=== PATIENT | female | born 1950 | race African-American/Black ===

== ENCOUNTER 2017-06-30 10:04 | Emergency (ER) | payer MEDICARE, MEDICAID ==
[~2017-06-30] VITALS: Ht 152.4 cm; Wt 40.0 kg
[~2017-06-30 10:04] MED LIST: ACETAMINOPHEN
[2017-06-30 10:16] VITALS: BP 156/91
[2017-06-30] MEDS ORDERED: ACETAMINOPHEN 325MG TABLET PO ONE (12:15)
[2017-06-30 13:32] LABS: CLARITY URINE CLOUDY (CLEAR); COLOR URINE DARK YELLOW (YELLOW); GLUCOSE URINE NEGATIVE (NEGATIVE); KETONES URINE NEGATIVE (NEGATIVE); LEUKOCYTE ESTERASE URINE 2+ (NEGATIVE); NITRITE URINE POSITIVE (NEGATIVE); OCCULT BLOOD URINE 3+ (NEGATIVE); PROTEIN URINE 1+ (NEGATIVE)
== END 2017-06-30 14:43 | disposition home or self-care (01) ==
LOC: ER 11:15
DX: S09.90XA Unspecified injury of head, initial encounter (principal); M25.511 Pain in right shoulder; I10 Essential (primary) hypertension; R31.9 Hematuria, unspecified; M54.9 Dorsalgia, unspecified; M54.2 Cervicalgia; W18.39XA Other fall on same level, initial encounter; Y93.89 Activity, other specified; Y92.89 Other specified places as the place of occurrence of the external cause; Y99.8 Other external cause status
CPT/HCPCS: 73030; 81001; 99285

== ENCOUNTER 2019-01-03 14:37 | Emergency (ER) | payer MEDICARE, MEDICAID ==
[~2019-01-03] VITALS: Ht 157.5 cm; Wt 55.0 kg
[2019-01-03] MEDS ORDERED: ACETAMINOPHEN 325MG TABLET PO NR (16:45)
[2019-01-03 17:49] VITALS: BP 115/75
== END 2019-01-03 17:56 | disposition home or self-care (01) ==
LOC: ER 14:37
DX: S09.8XXA Other specified injuries of head, initial encounter (principal); I10 Essential (primary) hypertension; R07.81 Pleurodynia; W18.39XA Other fall on same level, initial encounter; Y93.89 Activity, other specified; Y92.89 Other specified places as the place of occurrence of the external cause; Y99.8 Other external cause status
CPT/HCPCS: 99283

== ENCOUNTER 2021-07-08 02:17 | Inpatient (IN) | payer MEDICARE, MEDICAID ==
[~2021-07-08] VITALS: Ht 165.1 cm; Wt 48.6 kg
[2021-07-08] MEDS ORDERED: FAMOTIDINE 20MG/2ML VIAL IV STA (03:11)
[2021-07-08] MEDS ORDERED: SODIUM CHLORIDE 0.9% 1,000 ML IV ONE (03:15)
[2021-07-08 03:52] LABS: CLARITY URINE CLEAR (CLEAR); COLOR URINE YELLOW (YELLOW); KETONES URINE NEGATIVE (NEGATIVE); LEUKOCYTE ESTERASE URINE 1+ (NEGATIVE); NITRITE URINE NEGATIVE (NEGATIVE); OCCULT BLOOD URINE 3+ (NEGATIVE); PROTEIN URINE 1+ (NEGATIVE); SPECIFIC GRAVITY URINE 1.014 (1.005-1.030); UROBILINOGEN URINE 0.2 E.U./dL (0.2-1.0)
[2021-07-08 04:19] LABS: CHLORIDE 112 mEq/L (98-107)
[2021-07-08 04:32] LABS: HEMATOCRIT. 34.2 % (36.0-48.0); HEMOGLOBIN. 11.1 g/dL (12.0-16.0); MEAN CORPUSCULAR HEMOGLOBIN 33.4 pg (28.0-32.0); MEAN CORPUSCULAR VOLUME 102.7 fL (81.0-99.0); MEAN PLATELET VOLUME 8.6 fl (7.4-10.4); PLATELET 178 x1000/uL (130-400); RED BLOOD CELL COUNT 3.33 mill/uL (4.2-5.4); RED CELL DISTRIBUTION WIDTH 13.3 % (11.6-14.6)
[2021-07-08] MEDS ORDERED: PIPERACILLIN/TAZ 3.375G PREMIX 50 ML IV ONE (05:30)
[2021-07-08] MEDS ORDERED: ACETAMINOPHEN 325MG TABLET PO ONE (06:15)
[2021-07-08] MEDS ORDERED: IPRATROPIUM/ALBUTEROL 0.5-3(2.5)MG/3ML NEB NEB PRN (07:30)
[2021-07-08] MEDS ORDERED: GUAIFENESIN 200MG/10ML SUGAR FREE UDC PO PRN (07:30)
[2021-07-08] MEDS ORDERED: DOCUSATE SODIUM 100MG CAPSULE PO PRN (07:30)
[2021-07-08] MEDS ORDERED: NITROGLYCERIN 0.4MG TABLET SL SL PRN (07:30)
[2021-07-08] MEDS ORDERED: MAGNESIUM/ALUMINUM HYDROXIDE/SIMETHICONE 30ML UDC PO PRN (07:30)
[2021-07-08] MEDS ORDERED: CEFTRIAXONE 1 G PREMIX 50 ML IV NR (07:30)
[2021-07-08] MEDS ORDERED: ACETAMINOPHEN 325MG TABLET PO PRN ×2 (07:30)
[2021-07-08] MEDS ORDERED: CLONIDINE 0.1MG TABLET PO PRN (07:30)
[2021-07-08] MEDS ORDERED: ONDANSETRON HCL 4MG/2ML INJ IV PRN (07:30)
[2021-07-08] MEDS ORDERED: NALOXONE HCL 0.4MG/ML VIAL IV PRN (07:45)
[2021-07-08 08:01] LABS: PLATELET ESTIMATE NORMAL
[2021-07-08 08:22] LABS: ETHANOL BLOOD < 10 mg/dL
[2021-07-08 08:23] LABS: TOTAL IRON BINDING CAPACITY 343 ug/dL (250-450)
[2021-07-08 08:49] LABS: VITAMIN B12 SERUM 616 pg/mL (211-911)
[2021-07-08 08:51] LABS: FOLIC ACID (FOLATE) SERUM > 20.00 ng/mL (>5.38)
[2021-07-08] MEDS ORDERED: LEVOFLOXACIN 500MG PREMIX 100 ML IV SCH (09:00)
[2021-07-08 10:00] VITALS: BP 166/100
[2021-07-08] MEDS ORDERED: POTA10CA42 MT (10:00)
[2021-07-08] MEDS ORDERED: LOSA50TA41 PO (10:00)
[2021-07-08] MEDS ORDERED: SIMV10TA97 MT (10:00)
[2021-07-08] MEDS: METOPROLOL TARTRATE 25MG TABLET PO SCH ×2 (11:10→20:21)
[2021-07-08] MEDS: TRAMADOL 50MG TABLET PO PRN (11:10)
[2021-07-08] MEDS: PANTOPRAZOLE SODIUM 40 MG/VIAL IV SCH (11:11)
[2021-07-08 12:00] VITALS: BP 150/50
[2021-07-08 14:00] VITALS: BP 148/52
[2021-07-08] MEDS ORDERED: LEVOFLOXACIN 500MG PREMIX 100 ML IV NR (14:00)
[2021-07-08] MEDS: KETOROLAC 15MG/ML VIAL IV PRN (15:14)
[2021-07-08 16:00] VITALS: BP 112/76
[2021-07-08 16:32] LABS: CREATINE KINASE MB FRACTION 5.6 ng/mL (0.5-3.6)
[2021-07-08 18:00] VITALS: BP 124/72
[2021-07-08 20:00] VITALS: BP 118/70
[2021-07-08] MEDS: ZOLPIDEM TARTRATE 5MG TABLET PO PRN (20:39)
[2021-07-09] VITALS: BP 120/66
[2021-07-09 01:19] LABS: CREATINE KINASE MB FRACTION 8.8 ng/mL (0.5-3.6)
[2021-07-09 04:00] VITALS: BP 101/66
[2021-07-09 07:16] LABS: CHLORIDE 104 mEq/L (98-107)
[2021-07-09 07:28] LABS: BASOPHILS % 0.3 % (0.0-2.0); EOSINOPHILS % 0.9 % (0.0-5.0); HEMATOCRIT. 36.5 % (36.0-48.0); HEMOGLOBIN. 12.1 g/dL (12.0-16.0); LYMPHOCYTES % 22.5 % (20.0-50.0); MEAN CORPUSCULAR VOLUME 102.9 fL (81.0-99.0); MEAN PLATELET VOLUME 9.3 fl (7.4-10.4); MONOCYTES % 6.5 % (2.0-8.0); NEUTROPHILS % 69.8 % (40.0-76.0); PLATELET 174 x1000/uL (130-400); RED BLOOD CELL COUNT 3.55 mill/uL (4.2-5.4); RED CELL DISTRIBUTION WIDTH 13.3 % (11.6-14.6)
[2021-07-09 07:39] LABS: PHOSPHORUS 1.7 mg/dL (2.5-4.9)
[2021-07-09 08:00] VITALS: BP 156/84
[2021-07-09] MEDS ORDERED: CEFTRIAXONE 1,000 MG in DEXTROSE 5% WATER 50 ML IV SCH (08:00)
[2021-07-09] MEDS: CEFTRIAXONE 1,000 MG in DEXTROSE 5% WATER 50 ML IV SCH (08:18)
[2021-07-09] MEDS: KETOROLAC 15MG/ML VIAL IV PRN ×2 (08:19→17:34)
[2021-07-09] MEDS: METOPROLOL TARTRATE 25MG TABLET PO SCH (08:19)
[2021-07-09] MEDS: PANTOPRAZOLE SODIUM 40 MG/VIAL IV SCH (08:23)
[2021-07-09] MEDS ORDERED: POTASSIUM CHLORIDE INJ 40 MEQ in DEXT 5% WATER 250 ML IV ONE (08:45)
[2021-07-09] MEDS ORDERED: POTASSIUM CHLORIDE 20MEQ TABLET SR PO NR (09:00)
[2021-07-09] MEDS: ASPIRIN 325MG EC TABLET PO SCH (10:00)
[2021-07-09 10:06] LABS: CREATINE KINASE MB FRACTION 6.7 ng/mL (0.5-3.6)
[2021-07-09] MEDS ORDERED: MAGNESIUM 1 G PREMIX 100 ML IV SCH (11:00)
[2021-07-09] MEDS ORDERED: POTASSIUM PHOS,M-BASIC-D-BASIC 30 MMOL in DEXT 5% WATER 500 ML IV SCH (11:00)
[2021-07-09] MEDS ORDERED: KCL 20MEQ/100ML PREMIX 100 ML IV SCH (11:00)
[2021-07-09 12:14] LABS: *AMPHETAMINES SCREEN URINE NEGATIVE (NEGATIVE); *BARBITURATES SCREEN URINE NEGATIVE (NEGATIVE); *BENZODIAZEPINES SCREEN URINE NEGATIVE (NEGATIVE); *COCAINE SCREEN URINE NEGATIVE (NEGATIVE)
[2021-07-09 12:15] LABS: CANNABINOID URINE SCREEN NEGATIVE (NEGATIVE); METHADONE URINE SCREEN NEGATIVE (NEGATIVE); OPIATES URINE SCREEN PRESUMTIVE POSITIVE (NEGATIVE); PHENCYCLIDINE URINE SCREEN NEGATIVE (NEGATIVE)
[2021-07-09] MEDS: TRAMADOL 50MG TABLET PO PRN (14:16)
[2021-07-09] MEDS: LEVOFLOXACIN 250MG PREMIX 50 ML IV SCH (14:17)
[2021-07-09 20:00] VITALS: BP 137/81
[2021-07-09] MEDS: ZOLPIDEM TARTRATE 5MG TABLET PO PRN (20:38)
[2021-07-09] MEDS: FAMOTIDINE 20MG/2ML VIAL IV SCH (20:39)
[2021-07-09] MEDS: KCL 20MEQ/100ML PREMIX 100 ML IV SCH (21:08)
[2021-07-10] VITALS: BP 124/68
[2021-07-10] MEDS: KCL 20MEQ/100ML PREMIX 100 ML IV SCH (01:00)
[2021-07-10 04:00] VITALS: BP 141/73
[2021-07-10] MEDS: KETOROLAC 15MG/ML VIAL IV PRN ×2 (05:40→15:06)
[2021-07-10 06:00] LABS: CHLORIDE 109 mEq/L (98-107)
[2021-07-10 06:29] LABS: BASOPHILS % 0.3 % (0.0-2.0); EOSINOPHILS % 2.1 % (0.0-5.0); HEMOGLOBIN. 11.4 g/dL (12.0-16.0); LYMPHOCYTES % 23.2 % (20.0-50.0); MEAN CORPUSCULAR HEMOGLOBIN 33.2 pg (28.0-32.0); MEAN CORPUSCULAR VOLUME 101.9 fL (81.0-99.0); MEAN PLATELET VOLUME 9.7 fl (7.4-10.4); MONOCYTES % 7.4 % (2.0-8.0); PLATELET 160 x1000/uL (130-400); RED BLOOD CELL COUNT 3.44 mill/uL (4.2-5.4); RED CELL DISTRIBUTION WIDTH 13.3 % (11.6-14.6)
[2021-07-10 08:00] VITALS: BP 146/80
[2021-07-10] MEDS ORDERED: POTASSIUM CHLORIDE 20MEQ TABLET SR PO NR (09:00)
[2021-07-10] MEDS: CEFTRIAXONE 1,000 MG in DEXTROSE 5% WATER 50 ML IV SCH (09:24)
[2021-07-10] MEDS ORDERED: POTASSIUM CHLORIDE 20MEQ/PACKET PO ONE (09:45)
[2021-07-10] MEDS: ASPIRIN 325MG EC TABLET PO SCH (10:04)
[2021-07-10] MEDS: TRAMADOL 50MG TABLET PO PRN (10:05)
[2021-07-10] MEDS: FAMOTIDINE 20MG/2ML VIAL IV SCH (10:06)
[2021-07-10] MEDS ORDERED: REGADENOSON 0.4 MG/5 ML IV NR (10:30)
[2021-07-10 12:00] VITALS: BP 137/89
[2021-07-10] MEDS ORDERED: POTASSIUM PHOS,M-BASIC-D-BASIC 20 MMOL in DEXT 5% WATER 243.3333 ML IV NR (12:00)
[2021-07-10] MEDS: LEVOFLOXACIN 250MG PREMIX 50 ML IV SCH (12:32)
[2021-07-10] MEDS ORDERED: REGADENOSON 0.4 MG/5 ML IV ONE (13:45)
[2021-07-10] MEDS ORDERED: CAFFEINE CITRATE 20MG/ML 3ML VIAL IV ONE (13:57)
[2021-07-10 16:00] VITALS: BP 136/74
[2021-07-10 20:00] VITALS: BP 145/84
[2021-07-10] MEDS: ZOLPIDEM TARTRATE 5MG TABLET PO PRN (20:34)
[2021-07-10] MEDS ORDERED: FAMOTIDINE 20MG TABLET PO SCH (21:00)
[2021-07-11] VITALS: BP 143/90
[2021-07-11 04:00] VITALS: BP 148/78
[2021-07-11] MEDS: KETOROLAC 15MG/ML VIAL IV PRN (04:25)
[2021-07-11 07:58] LABS: BASOPHILS % 0.3 % (0.0-2.0); EOSINOPHILS % 1.8 % (0.0-5.0); HEMATOCRIT. 37.5 % (36.0-48.0); HEMOGLOBIN. 12.1 g/dL (12.0-16.0); LYMPHOCYTES % 23.1 % (20.0-50.0); MEAN CORPUSCULAR HEMOGLOBIN 33.6 pg (28.0-32.0); MEAN PLATELET VOLUME 9.7 fl (7.4-10.4); MONOCYTES % 7.3 % (2.0-8.0); NEUTROPHILS % 67.5 % (40.0-76.0); PLATELET 163 x1000/uL (130-400); RED CELL DISTRIBUTION WIDTH 13.3 % (11.6-14.6)
[2021-07-11 08:00] VITALS: BP 130/75
[2021-07-11 08:15] LABS: CHLORIDE 106 mEq/L (98-107)
[2021-07-11] MEDS: ASPIRIN 325MG EC TABLET PO SCH (08:57)
[2021-07-11] MEDS: CEFTRIAXONE 1,000 MG in DEXTROSE 5% WATER 50 ML IV SCH (08:58)
[2021-07-11] MEDS: LEVOFLOXACIN 250MG PREMIX 50 ML IV SCH (11:41)
[2021-07-11 12:00] VITALS: BP 135/71
[2021-07-11 14:24] VITALS: BP 135/71
== END 2021-07-11 15:34 | disposition home or self-care (01) | DRG 871 ==
LOC: ER 02:17 → 8WST 05:45 → ENRESERV 07:22 → EDBEDREQSVC 07:34
PROVIDERS: ADMIT Internal Medicine; ATTEND Internal Medicine
DX: A41.9 Sepsis, unspecified organism (principal); I21.4 Non-ST elevation (NSTEMI) myocardial infarction; N39.0 Urinary tract infection, site not specified; E44.1 Mild protein-calorie malnutrition; E87.0 Hyperosmolality and hypernatremia; D62 Acute posthemorrhagic anemia; Z68.1 Body mass index [BMI] 19.9 or less, adult; R65.20 Severe sepsis without septic shock; I10 Essential (primary) hypertension; D63.8 Anemia in other chronic diseases classified elsewhere; E87.6 Hypokalemia; N20.0 Calculus of kidney; I34.0 Nonrheumatic mitral (valve) insufficiency; I36.1 Nonrheumatic tricuspid (valve) insufficiency; N93.9 Abnormal uterine and vaginal bleeding, unspecified; R33.9 Retention of urine, unspecified; E83.42 Hypomagnesemia; Z20.822 Contact with and (suspected) exposure to COVID-19; R77.8 Other specified abnormalities of plasma proteins; R00.1 Bradycardia, unspecified; R73.9 Hyperglycemia, unspecified; Z87.442 Personal history of urinary calculi
CPT/HCPCS: 36415; 74176; 76856; 78452; 80048; 80053; 80061; 80305; 80320; 81003; 82550; 82553; 82607; 82746; 83036; 83540; 83550; 83605; 83735; 84100; 84443; 84484; 85025; 87426; 93005; 93017; 93306; 93970; 97162; 97166; 99285; A9500; C1893; C9113; J0696; J0706; J1885; J1956; J2543; J2785; J3475; J3480; J3490; J7030; J7040; J7060; G0480

== ENCOUNTER 2023-01-17 13:39 | Emergency (ER) | payer MEDICARE, MEDICAID ==
[~2023-01-17] VITALS: Ht 165.1 cm; Wt 54.0 kg
[~2023-01-17 13:39] MED LIST changes: +LOSA50TA41 PO; +POTA10CA43 MT; +SIMV10TA97 MT
[2023-01-17 13:41] VITALS: BP 158/100
[2023-01-17 15:58] LABS: BASOPHILS % 0.7 % (0.0-2.0); EOSINOPHILS % 1.9 % (0.0-5.0); HEMATOCRIT. 32.7 % (36.0-48.0); LYMPHOCYTES % 23.9 % (20.0-50.0); MEAN CORPUSCULAR HEMOGLOBIN 31.5 pg (28.0-32.0); MEAN CORPUSCULAR VOLUME 103.2 fL (81.0-99.0); MEAN PLATELET VOLUME 8.6 fl (7.4-10.4); MONOCYTES % 5.9 % (2.0-8.0); NEUTROPHILS % 67.6 % (40.0-76.0); PLATELET 333 x1000/uL (130-400); RED BLOOD CELL COUNT 3.17 mill/uL (4.2-5.4); RED CELL DISTRIBUTION WIDTH 16.9 % (11.6-14.6)
[2023-01-17] MEDS ORDERED: FURO-152 MT (16:04)
[2023-01-17] MEDS ORDERED: TOPUD MT (16:04)
[2023-01-17 16:06] LABS: CHLORIDE 111 mEq/L (98-107)
[2023-01-17] MEDS ORDERED: POTA-205 MT (16:35)
[2023-01-17] MEDS ORDERED: POTASSIUM CHLORIDE 20MEQ TABLET SR PO SCH (16:45)
[2023-01-18] MEDS ORDERED: POTASSIUM CHLORIDE 20MEQ TABLET SR PO SCH (09:00)
== END 2023-01-17 17:40 | disposition home or self-care (01) ==
LOC: ER 13:39
DX: R60.0 Localized edema (principal)
CPT/HCPCS: 36415; 71045; 73590; 73610; 80053; 83880; 84484; 85025; 93005; 93971; 99285

== ENCOUNTER 2023-07-30 18:12 | Emergency (ER) | payer MEDICARE, MEDICAID ==
[~2023-07-30] VITALS: Ht 152.4 cm; Wt 31.7 kg
[~2023-07-30 18:12] MED LIST changes: -ACETAMINOPHEN; +ALLO100T PO; +GABA-532 PO; +POTA-189 PO; -POTA10CA43 MT; +T3 PO
[2023-07-30 19:07] VITALS: BP 112/81; PULSE 110; RESP 16; TEMP 98.4; O2SAT 100
[2023-07-30] MEDS ORDERED: ACETAMINOPHEN 325MG TABLET PO ONE (20:15)
[2023-07-30] MEDS ORDERED: TOPUD MT (22:17)
== END 2023-07-30 22:50 | disposition home or self-care (01) ==
LOC: ER 18:12
DX: S93.401A Sprain of unspecified ligament of right ankle, initial encounter (principal); I10 Essential (primary) hypertension; E78.00 Pure hypercholesterolemia, unspecified; Z98.890 Other specified postprocedural states; W18.2XXA Fall in (into) shower or empty bathtub, initial encounter; Y93.89 Activity, other specified; Y92.89 Other specified places as the place of occurrence of the external cause; Y99.8 Other external cause status
CPT/HCPCS: 73610; 73630; 99284

== ENCOUNTER 2023-08-08 10:04 | Emergency (ER) | payer MEDICARE, MEDICAID ==
[~2023-08-08] VITALS: Ht 157.5 cm; Wt 45.0 kg
[~2023-08-08 10:04] MED LIST changes: +TOPUD MT
[2023-08-08 10:12] VITALS: BP 0/0; PULSE 112; RESP 20; TEMP 98.4; O2SAT 100
[2023-08-08 11:31] LABS: BASOPHILS % 0.2 % (0.0-2.0); HEMATOCRIT. 26.4 % (36.0-48.0); HEMOGLOBIN. 8.2 g/dL (12.0-16.0); LYMPHOCYTES % 12.9 % (20.0-50.0); MEAN CORPUSCULAR HEMOGLOBIN 29.2 pg (28.0-32.0); MEAN CORPUSCULAR HGB CONC 30.8 g/dL (31.0-37.0); MEAN CORPUSCULAR VOLUME 94.8 fL (81.0-99.0); MEAN PLATELET VOLUME 8.4 fl (7.4-10.4); NEUTROPHILS % 82.9 % (40.0-76.0); PLATELET 634 x1000/uL (130-400); RED BLOOD CELL COUNT 2.79 mill/uL (4.2-5.4); RED CELL DISTRIBUTION WIDTH 19.3 % (11.6-14.6); WHITE BLOOD COUNT 15.6 x1000/uL (4.5-11.0)
[2023-08-08 12:12] LABS: ALANINE AMINOTRANSFERASE < 7 IU/L (10-49); ALBUMIN 2.4 g/dL (3.2-4.8); ASPARTATE AMINOTRANSFERASE 14 IU/L (<34); BILIRUBIN TOTAL 0.5 mg/dL (0.1-1.0); CALCIUM 8.8 mg/dL (8.7-10.4); CARBON DIOXIDE 22 mEq/L (21-32); CHLORIDE 109 mEq/L (98-107); GLUCOSE 172 mg/dL (70-105); PROTEIN TOTAL 5.9 g/dL (6.0-8.3); SODIUM 139 mEq/L (136-145); UREA NITROGEN BLOOD 16 mg/dL (9-23)
== END 2023-08-08 15:01 | disposition home or self-care (01) ==
LOC: ER 10:04
DX: R60.9 Edema, unspecified (principal); D64.9 Anemia, unspecified; D72.829 Elevated white blood cell count, unspecified; E78.00 Pure hypercholesterolemia, unspecified; I10 Essential (primary) hypertension; Z90.49 Acquired absence of other specified parts of digestive tract; Z98.890 Other specified postprocedural states
CPT/HCPCS: 36415; 71045; 80053; 83880; 85025; 93923; 93970; 99284